=== PATIENT | male | born 1960 | race Caucasian/White ===

== ENCOUNTER 2019-01-20 12:17 | Inpatient (IN) | payer OTHER ==
[2019-01-20] MEDS: SODIUM CHLORIDE 0.9% 1L BAG IV* (12:42)
[2019-01-20 12:43] LABS: ADD MAN DIFF? NO
[2019-01-20] MEDS: ONDANSETRON 4 MG INJ IV (12:44)
[2019-01-20] MEDS: PIPER-TAZO 3.375 GM IV (PMX) 100 ML IVPB ×3 (12:45→23:52)
[2019-01-20] MEDS: morphine 4 MG/ML VIAL IV (12:45)
[2019-01-20 12:49] LABS: WHITE BLOOD COUNT 23.5 10^3/ul (4.8-10.8)
[2019-01-20 12:49] LABS: ABNORMAL IP MESSAGE 1; BASOPHIL # 0.1 10^3/ul (0.0-0.1); BASOPHILS % 0.6 % (0.0-2.0); EOSINOPHILS % 0.2 % (0.0-7.0); HEMATOCRIT 48.6 % (42.0-52.0); HEMOGLOBIN 16.3 g/dl (14.0-18.0); LYMPHOCYTES # 2.5 10^3/ul (0.8-2.9); LYMPHOCYTES % 10.4 % (15.0-51.0); MEAN CORPUSCULAR HGB CONC 33.5 g/dl (32.0-37.0); MEAN CORPUSCULAR VOLUME 89.5 fl (82.0-101.0); MEAN PLATELET VOLUME 10.6 fl (7.4-10.4); MONOCYTE # 1.7 10^3/ul (0.3-0.9); MONOCYTES % 7.1 % (0.0-11.0); NEUTROPHILS % 80.7 % (39.0-77.0); PLATELET COUNT 308 10^3/UL (140-415); POSITIVE DIFF @See below; RED BLOOD COUNT 5.43 10^6/ul (4.70-6.10); RED CELL DISTRIBUTION WIDTH 12.8 % (11.5-14.5)
[2019-01-20 12:53] LABS: ADD UMIC NO; UR ASCORBIC ACID 40 mg/dL (NEGATIVE); UR BILIRUBIN (Dip) NEGATIVE (NEGATIVE); UR BLOOD (Dip) NEGATIVE (NEGATIVE); UR CLARITY CLEAR (CLEAR); UR COLOR YELLOW (YELLOW); UR GLUCOSE (Dip) NEGATIVE (NEGATIVE); UR KETONES (Dip) NEGATIVE (NEGATIVE); UR LEUKOCYTE ESTERASE (Dip) NEGATIVE Leu/ul (NEGATIVE); UR NITRITE (Dip) NEGATIVE (NEGATIVE); UR SPECIFIC GRAVITY (Dip) 1.018 (1.003-1.030); UR TOTAL PROTEIN (Dip) NEGATIVE (NEGATIVE); UR UROBILINOGEN (Dip) NEGATIVE (NEGATIVE)
[2019-01-20 13:08] LABS: INR 0.91; PROTIME 12.4 Sec (11.9-14.9)
[2019-01-20 13:10] LABS: ALANINE AMINOTRANSFERASE 37 IU/L (13-69); ALKALINE PHOSPHATASE 87 IU/L (42-121); ANION GAP 14 (5-13); ASPARTATE AMINO TRANSFERASE 33 IU/L (15-46); BILIRUBIN,INDIRECT 0.4 mg/dl (0-1.1); BILIRUBIN,TOTAL 0.4 mg/dl (0.2-1.3); BLOOD UREA NITROGEN 16 mg/dl (7-20); CARBON DIOXIDE 29 mmol/L (21-31); CHLORIDE 97 mmol/L (97-110); CREATININE 1.34 mg/dl (0.61-1.24); Estimated GFR 54 mL/min (>60); GLUCOSE 102 mg/dl (70-220); LIPASE 312 U/L (23-300); POTASSIUM 3.9 mmol/L (3.5-5.1); SODIUM 140 mmol/L (135-144)
[2019-01-20 13:11] LABS: ALBUMIN 5.4 g/dl (3.3-4.9); TOTAL PROTEIN 10.3 g/dl (6.1-8.1)
[2019-01-20 13:22] LABS: TROPONIN-I < 0.012 ng/ml (0.000-0.120)
[2019-01-20] MEDS ORDERED: ACETAMINOPHEN 325 MG TAB PO ×2 (14:30→16:30)
[2019-01-20] MEDS ORDERED: ONDANSETRON 4 MG INJ IV ×2 (14:30→16:30)
[2019-01-20] MEDS ORDERED: hydrALAzine 20 MG INJ IV (16:30)
[2019-01-20] MEDS ORDERED: NACL 0.9% 3 ML SYG IV (16:30)
[2019-01-20] MEDS ORDERED: HYDROCODONE/APAP (5/325) TAB PO (16:30)
[2019-01-20 17:19] LABS: HEMOGLOBIN A1C 5.8 % (0-5.9)
[2019-01-20 17:51] LABS: AMPHETAMINE/METHAMPHETAMINE Negative (NEGATIVE); BARBITURATES Negative (NEGATIVE); BENZODIAZEPINES Negative (NEGATIVE); CANNABINOIDS Negative (NEGATIVE); COCAINE Negative (NEGATIVE); OPIATES Negative (NEGATIVE)
[2019-01-20 18:42] LABS: ERYTHROCYTE SEDIMENTATION RATE 32 mm/Hr (0-20)
[2019-01-20] MEDS: SOD CHLORIDE 0.9% 1,000 ML IV (18:46)
[2019-01-20] MEDS: PANTOPRAZOLE 40 MG INJ IV (18:46)
[2019-01-20] MEDS: ATORVASTATIN 20 MG TAB PO (21:03)
[2019-01-20] MEDS: morphine 2 MG INJ IV (21:27)
[2019-01-21] MEDS: SOD CHLORIDE 0.9% 1,000 ML IV ×4 (02:19→18:51)
[2019-01-21] MEDS: PANTOPRAZOLE 40 MG INJ IV ×2 (05:25→17:41)
[2019-01-21] MEDS: PIPER-TAZO 3.375 GM IV (PMX) 100 ML IVPB ×3 (05:26→17:41)
[2019-01-21 05:37] LABS: ADD MAN DIFF? NO
[2019-01-21 05:38] LABS: WHITE BLOOD COUNT 16.7 10^3/ul (4.8-10.8)
[2019-01-21 05:38] LABS: BASOPHIL # 0.1 10^3/ul (0.0-0.1); BASOPHILS % 0.5 % (0.0-2.0); EOSINOPHILS # 0.2 10^3/ul (0.0-0.5); HEMATOCRIT 39.3 % (42.0-52.0); HEMOGLOBIN 13.1 g/dl (14.0-18.0); LYMPHOCYTES # 2.3 10^3/ul (0.8-2.9); LYMPHOCYTES % 13.6 % (15.0-51.0); MEAN CORPUSCULAR HEMOGLOBIN 30.3 pg (29.0-33.0); MEAN CORPUSCULAR HGB CONC 33.3 g/dl (32.0-37.0); MEAN PLATELET VOLUME 10.7 fl (7.4-10.4); MONOCYTE # 1.5 10^3/ul (0.3-0.9); MONOCYTES % 8.7 % (0.0-11.0); NEUTROPHIL # 12.6 10^3/ul (1.6-7.5); NEUTROPHILS % 75.5 % (39.0-77.0); PLATELET COUNT 232 10^3/UL (140-415); RED BLOOD COUNT 4.32 10^6/ul (4.70-6.10); RED CELL DISTRIBUTION WIDTH 12.8 % (11.5-14.5)
[2019-01-21 05:58] LABS: INR 0.97
[2019-01-21 05:59] LABS: PARTIAL THROMBOPLASTIN TIME 32.5 Sec (23.0-35.0)
[2019-01-21 06:01] LABS: ALANINE AMINOTRANSFERASE 30 IU/L (13-69); ALBUMIN 3.5 g/dl (3.3-4.9); ALBUMIN/GLOBULIN RATIO 1.09; ALKALINE PHOSPHATASE 61 IU/L (42-121); AMYLASE 102 U/L (11-123); ANION GAP 6 (5-13); ASPARTATE AMINO TRANSFERASE 21 IU/L (15-46); BILIRUBIN,INDIRECT 0.4 mg/dl (0-1.1); BILIRUBIN,TOTAL 0.4 mg/dl (0.2-1.3); BLOOD UREA NITROGEN 15 mg/dl (7-20); CALCIUM 8.4 mg/dl (8.4-10.2); CARBON DIOXIDE 29 mmol/L (21-31); CHLORIDE 106 mmol/L (97-110); CREATININE 1.36 mg/dl (0.61-1.24); Estimated GFR 53 mL/min (>60); GLUCOSE 104 mg/dl (70-220); LIPASE 204 U/L (23-300); POTASSIUM 4.1 mmol/L (3.5-5.1); SODIUM 141 mmol/L (135-144); TOTAL PROTEIN 6.7 g/dl (6.1-8.1)
[2019-01-21 06:03] LABS: CHOL/HDL RATIO 3.8 RATIO; CHOLESTEROL 118 mg/dl (100-200); HDL CHOLESTEROL 31 mg/dl (30-78); LDL CHOLESTEROL,CALCULATED 66 mg/dl; MAGNESIUM 1.9 mg/dl (1.7-2.5); TRIGLYCERIDES 104 mg/dl (0-149)
[2019-01-21 07:10] LABS: C-REACTIVE PROTEIN 7.3 mg/dl (0.0-0.9)
[2019-01-21] MEDS: CHOLECALCIFEROL 1,000 UNIT TAB PO (08:54)
[2019-01-21 20:11] LABS: SODIUM,URINE RANDOM 70 mmol/L (30-90)
[2019-01-21 20:11] LABS: CREATININE,URINE RANDOM 42.35 mg/dl (20-370)
[2019-01-21 20:13] LABS: ADD UMIC YES; UR ASCORBIC ACID NEGATIVE (NEGATIVE); UR BILIRUBIN (Dip) NEGATIVE (NEGATIVE); UR BLOOD (Dip) 1+ mg/dL (NEGATIVE); UR CLARITY CLEAR (CLEAR); UR COLOR STRAW (YELLOW); UR GLUCOSE (Dip) NEGATIVE (NEGATIVE); UR KETONES (Dip) NEGATIVE (NEGATIVE); UR LEUKOCYTE ESTERASE (Dip) NEGATIVE Leu/ul (NEGATIVE); UR NITRITE (Dip) NEGATIVE (NEGATIVE); UR RBC 0 /HPF (0-5); UR SPECIFIC GRAVITY (Dip) 1.009 (1.003-1.030); UR TOTAL PROTEIN (Dip) NEGATIVE (NEGATIVE); UR UROBILINOGEN (Dip) NEGATIVE (NEGATIVE); UR WBC 0 /HPF (0-5)
[2019-01-21] MEDS: ATORVASTATIN 20 MG TAB PO (22:03)
[2019-01-22] MEDS: PIPER-TAZO 3.375 GM IV (PMX) 100 ML IVPB ×3 (00:15→11:37)
[2019-01-22] MEDS: PANTOPRAZOLE 40 MG INJ IV (05:53)
[2019-01-22] MEDS: SOD CHLORIDE 0.9% 1,000 ML IV (05:53)
[2019-01-22 06:12] LABS: ADD MAN DIFF? NO
[2019-01-22 06:27] LABS: BASOPHIL # 0.1 10^3/ul (0.0-0.1); BASOPHILS % 0.4 % (0.0-2.0); EOSINOPHILS # 0.5 10^3/ul (0.0-0.5); EOSINOPHILS % 3.2 % (0.0-7.0); HEMATOCRIT 39.3 % (42.0-52.0); HEMOGLOBIN 13.3 g/dl (14.0-18.0); LYMPHOCYTES # 2.2 10^3/ul (0.8-2.9); LYMPHOCYTES % 15.6 % (15.0-51.0); MEAN CORPUSCULAR HEMOGLOBIN 30.4 pg (29.0-33.0); MEAN CORPUSCULAR HGB CONC 33.8 g/dl (32.0-37.0); MEAN CORPUSCULAR VOLUME 89.7 fl (82.0-101.0); MEAN PLATELET VOLUME 10.7 fl (7.4-10.4); MONOCYTES % 7.3 % (0.0-11.0); NEUTROPHIL # 10.3 10^3/ul (1.6-7.5); NEUTROPHILS % 73.1 % (39.0-77.0); PLATELET COUNT 269 10^3/UL (140-415); RED BLOOD COUNT 4.38 10^6/ul (4.70-6.10); RED CELL DISTRIBUTION WIDTH 12.7 % (11.5-14.5)
[2019-01-22 06:27] LABS: WHITE BLOOD COUNT 14.1 10^3/ul (4.8-10.8)
[2019-01-22 07:00] LABS: ANION GAP 5 (5-13); BLOOD UREA NITROGEN 12 mg/dl (7-20); CALCIUM 8.7 mg/dl (8.4-10.2); CARBON DIOXIDE 30 mmol/L (21-31); CHLORIDE 108 mmol/L (97-110); CREATININE 1.28 mg/dl (0.61-1.24); Estimated GFR 57 mL/min (>60); GLUCOSE 107 mg/dl (70-220); POTASSIUM 4.4 mmol/L (3.5-5.1); SODIUM 143 mmol/L (135-144)
[2019-01-22 07:24] LABS: MAGNESIUM 2.1 mg/dl (1.7-2.5)
[2019-01-22 07:39] LABS: ERYTHROCYTE SEDIMENTATION RATE 55 mm/Hr (0-20)
[2019-01-22 07:49] LABS: C-REACTIVE PROTEIN 12.5 mg/dl (0.0-0.9)
[2019-01-22] MEDS: CHOLECALCIFEROL 1,000 UNIT TAB PO (08:24)
[2019-01-22] MEDS: POLYETHYLENE GLYCOL 17 GM PACKET PO (15:27)
[2019-01-22] MEDS ORDERED: PANTOPRAZOLE (EC) 40 MG TAB PO (18:00)
[2019-01-23 12:32] LABS: PROCALCITONIN <0.10 ng/mL (<0.10)
[2019-01-25 13:02] LABS: CREATININE, RANDOM URINE 42 mg/dL (20-320); MICROALBUMIN <0.2 mg/dL; MICROALBUMIN/CREATININE RATIO NOTE (<30)
== END 2019-01-22 16:15 | disposition home or self-care (01) | DRG 872 ==
LOC: E/R 12:17 → 2NE 14:29
PROVIDERS: Internal Medicine
DX: A41.9 Sepsis, unspecified organism (principal); N17.9 Acute kidney failure, unspecified; N18.3 Chronic kidney disease, stage 3 (moderate); E78.5 Hyperlipidemia, unspecified; D64.9 Anemia, unspecified; I12.9 Hypertensive chronic kidney disease with stage 1 through stage 4 chronic kidney disease, or unspecified chronic kidney disease
CPT/HCPCS: 36415; 71045; 74176; 76775; 80048; 80053; 80061; 80307; 81001; 81003; 82043; 82150; 83036; 83605; 83690; 83735; 84100; 84145; 84155; 84300; 84484; 85025; 85610; 85651; 85730; 86140; 87040; 87045; 87086; 87400; 93005; 96374; 96375; 99291-25